=== PATIENT | male | born 1965 | race Caucasian/White ===

== ENCOUNTER → 2017-03-26 | Outpatient (CLI) | payer OTHER ==
[2017-03-26 12:09] LABS: PROTHROMBIN TIME 17.1 SEC (11.4-15.4)
== END ==
LOC: LAB 11:53
PROVIDERS: ATTEND Family Medicine
DX: D68.51 Activated protein C resistance (principal)
CPT/HCPCS: 36415; 85610

== ENCOUNTER 2017-03-29 10:12 | Day surgery (SDC) | payer OTHER ==
[~2017-03-29 10:12] MED LIST: PROPOFOL INJ 200 MG/20 ML VIAL IV ONE
[2017-03-29] MEDS ORDERED: RINGERS SOLUTION,LACTATED 1,000 ML IV PRN (10:54)
[2017-03-29] MEDS ORDERED: CITRIC ACID/SODIUM CITRATE ORAL SOLN 15 ML UDCUP PO ONE (11:15)
[2017-03-29 12:43] VITALS: BP 128/85
--- NOTE | 2017-03-29 13:42 | Operative Report ---
Operative Report DATE OF SURGERY: 03/29/17 Operative Report: The risks, benefits and alternatives of the procedure including risks of bleeding, perforation requiring surgery are explained to the patient detail and informed consent was obtained. Patient was taken back to the endoscopy suite. Propofol medications administered. Timeout was called. A rectal examination was done which did not reveal any masses, tears or fissures. An Olympus video scope was inserted into the patient's rectum. It is carefully advanced all the way to the cecum. The patient has a long redundant colon. The cecum was identified by the ileocecal valve as well as the appendiceal office. Prep is good. Photodocumentation was obtained. The scope was then sequentially pulled back via the various segments of the colon including the ascending colon, hepatic flexure, transverse colon, splenic flexure, descending colon and finding to the rectosigmoid portions of the colon. Retroflexion maneuver was performed. The risks benefits and alternatives of the procedure explained to the patient in detail and informed consent is obtained.A GIF Olympus video scope was inserted into the patient's mouth and hypopharynx, the esophagus is identified intubated and insufflated,the scope was then advanced through the esophagus stomach and duodenum, retroflexion maneuver is done ,the esophagus stomach and first and second portions of the duodenum examined PREOPERATIVE DIAGNOSIS: Personal history of polyps. Gastroesophageal reflux disease POSTOPERATIVE DIAGNOSIS: Colon polyp in the cecum that is removed via snare polypectomy. Gastritis status post biopsy rule out Helicobacter pylori. Mild internal hemorrhoids OPERATION: Colonoscopy with snare polypectomy. EGD with biopsy SURGEON: HIRA ALICEA ANESTHESIA: LMAC TISSUE REMOVED OR ALTERED: Colon polyp removed and retrieved. Shallow biopsy of stomach mucosa, rule out Helicobacter pylori COMPLICATIONS: None. ESTIMATED BLOOD LOSS: None. INTRAOPERATIVE FINDINGS: As noted above. PROCEDURE: Patient tolerated the procedure well. No immediate postprocedure complications are noted. Patient discharged in good condition. Discharge date 03/29/2017. Discharge diet: Regular. Discharge activity: Regular. 2-3 week follow-up to discuss findings. Patient is instructed to call the office should there be any further problems or questions. We will await pathology. 5 year surveillance colonoscopy.
== END 2017-03-29 12:40 | disposition home or self-care (01) ==
LOC: END 10:12
PROVIDERS: ATTEND Internal Medicine Gastroenterology
PROC: 0DB68ZX Excision of Stomach, Via Natural or Artificial Opening Endoscopic, Diagnostic (ICD-10-PCS; principal; 2017-03-29 13:30)
PROC: 0DBH8ZX Excision of Cecum, Via Natural or Artificial Opening Endoscopic, Diagnostic (ICD-10-PCS; 2017-03-29 13:30)
DX: K21.9 Gastro-esophageal reflux disease without esophagitis (principal); K29.70 Gastritis, unspecified, without bleeding; D12.0 Benign neoplasm of cecum; K64.8 Other hemorrhoids; I10 Essential (primary) hypertension; G47.33 Obstructive sleep apnea (adult) (pediatric); D68.51 Activated protein C resistance; M19.90 Unspecified osteoarthritis, unspecified site; I25.10 Atherosclerotic heart disease of native coronary artery without angina pectoris; I20.9 Angina pectoris, unspecified; Z85.828 Personal history of other malignant neoplasm of skin; Z86.718 Personal history of other venous thrombosis and embolism; Z79.01 Long term (current) use of anticoagulants; Z79.899 Other long term (current) drug therapy
CPT/HCPCS: 43239; 45385; 88342 ×2; 88305 ×2; J3490; J2704; 740

== ENCOUNTER → 2017-04-09 | Outpatient (CLI) | payer OTHER ==
[2017-04-09 09:17] LABS: PROTHROMBIN TIME 25.1 SEC (11.4-15.4)
== END ==
LOC: LAB 08:56
PROVIDERS: ATTEND Family Medicine
DX: D68.51 Activated protein C resistance (principal); M75.52 Bursitis of left shoulder
CPT/HCPCS: 36415; 85610

== ENCOUNTER → 2019-01-06 | Outpatient (CLI) | payer OTHER ==
--- NOTE | 2019-01-06 15:26 | RADIOLOGY REPORT (SQ) ---
EXAM DESCRIPTION: CHEST PA/LATERAL COMPLETED DATE/TIME: 01/06/2019 3:12 pm REASON FOR STUDY: COUGH COMPARISON: 06/10/2009 EXAM PARAMETERS: NUMBER OF VIEWS: two views TECHNIQUE: Digital Frontal and Lateral radiographic views of the chest acquired. RADIATION DOSE: NA LIMITATIONS: none FINDINGS: LUNGS AND PLEURA: No opacities, masses or pneumothorax. No pleural effusion. MEDIASTINUM AND HILAR STRUCTURES: No masses or contour abnormalities. HEART AND VASCULAR STRUCTURES: Heart normal size. No evidence for failure. BONES: No acute findings. HARDWARE: None in the chest. OTHER: No other significant finding. IMPRESSION: NO SIGNIFICANT RADIOGRAPHIC FINDING IN THE CHEST. TECHNICAL DOCUMENTATION: JOB ID: [id number] [employer]- All Rights Reserved Reading location - IP/workstation name: [email or web address]
== END ==
LOC: OD 14:42
PROVIDERS: ATTEND Nurse Practitioner Family
DX: R05 Cough (principal)
CPT/HCPCS: 71046

== ENCOUNTER → 2019-09-26 | Outpatient (CLI) | payer OTHER ==
--- NOTE | 2019-09-26 13:40 | RADIOLOGY REPORT (SQ) ---
EXAM DESCRIPTION: KUB COMPLETED DATE/TIME: 09/26/2019 1:21 pm REASON FOR STUDY: S/P GASTRIC BYPASS; RT HIP PAIN; CHRONIC RT SIDED LOW BACK PAIN M54.41 [place] TH SCIATICA, RIGHT SIDE M25.551 PAIN IN RIGHT HIP Z98.84 BARIATRIC SURGERY STATUS COMPARISON: None. NUMBER OF VIEWS: One view. TECHNIQUE: Supine radiographic image of the abdomen acquired. LIMITATIONS: None. FINDINGS: BOWEL GAS PATTERN: Normal bowel gas pattern. No dilated loops. CALCIFICATIONS: No suspicious calcifications. SOFT TISSUES: No gross mass or suggestion of organomegaly. HARDWARE: Catheter on the left may relate to a gastroesophageal junction collar. BONES: No acute fracture. No worrisome bone lesions. OTHER: No other significant finding. IMPRESSION: NO RADIOGRAPHIC EVIDENCE FOR ACUTE ABDOMINAL DISEASE. TECHNICAL DOCUMENTATION: JOB ID: [id number] 2010 [employer]- All Rights Reserved Reading location - IP/workstation name: [email or web address]
--- NOTE | 2019-09-26 13:40 | RADIOLOGY REPORT (SQ) ---
EXAM DESCRIPTION: HIP RIGHT AP/LATERAL COMPLETED DATE/TIME: 09/26/2019 1:21 pm REASON FOR STUDY: S/P GASTRIC BYPASS; RT HIP PAIN; CHRONIC RT SIDED LOW BACK PAIN M54.41 [place] TH SCIATICA, RIGHT SIDE M25.551 PAIN IN RIGHT HIP Z98.84 BARIATRIC SURGERY STATUS COMPARISON: None. NUMBER OF VIEWS: Two views. TECHNIQUE: AP pelvis and additional frog-leg view of the right hip. LIMITATIONS: None. FINDINGS: MINERALIZATION: Normal. RIGHT HIP: No fracture or dislocation. No worrisome bone lesions. LEFT HIP: No fracture or dislocation. No worrisome bone lesions. PUBIS AND ISCHIUM: No fracture. PELVIS: No fracture. SACRUM: No fracture or dislocation. No worrisome bone lesions. LOWER LUMBAR SPINE: No fracture or dislocation. No worrisome bone lesions. No significant disc disea se. SOFT TISSUES: No findings. OTHER: No other significant finding. IMPRESSION: NEGATIVE STUDY OF THE RIGHT HIP. NO RADIOGRAPHIC EVIDENCE OF ACUTE INJURY. TECHNICAL DOCUMENTATION: JOB ID: [id number] 2011 [employer]- All Rights Reserved Reading location - IP/workstation name: [email or web address]
--- NOTE | 2019-09-26 13:43 | RADIOLOGY REPORT (SQ) ---
EXAM DESCRIPTION: LUMBAR SPINE COMPLETE COMPLETED DATE/TIME: 09/26/2019 1:22 pm REASON FOR STUDY: S/P GASTRIC BYPASS; RT HIP PAIN; CHRONIC RT SIDED LOW BACK PAIN M54.41 [place] TH SCIATICA, RIGHT SIDE M25.551 PAIN IN RIGHT HIP Z98.84 BARIATRIC SURGERY STATUS COMPARISON: None. NUMBER OF VIEWS: Five views including obliques. TECHNIQUE: AP, lateral, oblique, and sacral radiographic images acquired of the lumbar spine. LIMITATIONS: None. FINDINGS: MINERALIZATION: Normal. SEGMENTATION: Normal. No transitional anatomy. ALIGNMENT: Normal. VERTEBRAE: Maintained height. No fracture or worrisome bone lesion. DISCS: The disc spaces are fairly well maintained. There are marginal osteophytes at L4 and L5. POSTERIOR ELEMENTS: Hypertrophic facet changes from L3-S1. HARDWARE: None in the spine. PARASPINAL SOFT TISSUES: Normal. PELVIS: Intact as visualized. No fractures or worrisome bone lesions. SI joints intact. OTHER: No other significant finding. IMPRESSION: Spondylosis. Facet arthropathy. TECHNICAL DOCUMENTATION: JOB ID: [id number] 2011 [employer]- All Rights Reserved Reading location - IP/workstation name: [email or web address]
== END ==
LOC: RAD 12:46
PROVIDERS: ATTEND Family Medicine
DX: M54.41 Lumbago with sciatica, right side (principal); M47.896 Other spondylosis, lumbar region; M25.551 Pain in right hip; Z98.84 Bariatric surgery status
CPT/HCPCS: 72110; 74018